=== PATIENT | female | born 1955 | race Two or more races ===

== ENCOUNTER 2016-11-21 13:05 | Outpatient (CLI) | payer BC | END 2016-11-21 13:06 | disposition critical access hospital (66) | LOC: EMS 13:05 | PROVIDERS: ATTEND Surgery | DX: R07.89 Other chest pain (principal); R55 Syncope and collapse | CPT/HCPCS: A0425; A0429 ==

== ENCOUNTER 2016-11-21 13:42 | Emergency (ER) | payer BC ==
[2016-11-21 14:15] LABS: BASOPHILS % (AUTO) 0.5 %; EOSINOPHILS # (AUTO) 0.1 10^3/uL (0.0-0.7); EOSINOPHILS % (AUTO) 1.4 %; HCT - HEMATOCRIT 42.7 % (37.0-47.0); HGB - HEMOGLOBIN 14.3 g/dL (12.0-16.0); LYMPHOCYTES # (AUTO) 1.3 10^3/uL (1.5-3.5); LYMPHOCYTES % (AUTO) 15.1 %; MEAN CORPUSCULAR HEMOGLOBIN 29.1 pg (27.0-31.0); MEAN CORPUSCULAR HGB CONC 33.6 g/dL (32.0-36.0); MEAN CORPUSCULAR VOLUME 86.6 fL (81.0-99.0); MEAN PLATELET VOLUME 8.8 fL (7.9-10.8); MONOCYTES # (AUTO) 0.6 10^3/uL (0.0-1.0); MONOCYTES % (AUTO) 7.2 %; NEUTROPHILS # (AUTO) 6.3 10^3/uL (1.5-6.6); NEUTROPHILS % (AUTO) 75.8 %; RED BLOOD COUNT 4.94 10^6/uL (4.20-5.40); RED CELL DISTRIBUTION WIDTH 13.5 % (12.0-15.0); UNCORRECTED WHITE BLOOD COUNT 8.3 x10^3/uL; WHITE BLOOD COUNT 8.3 x10^3/uL (4.8-10.8)
--- NOTE | 2016-11-21 14:18 | XRAY Preliminary Report ---
Exam: XR Chest 1 View IMPRESSION: No acute cardiopulmonary process. [facility] SITE ID: [id number]
--- NOTE | 2016-11-21 14:21 | XRAY Report ---
EXAM: CHEST RADIOGRAPHY EXAM DATE: 11/21/2016 02:09 PM. CLINICAL HISTORY: Chest pain. COMPARISON: None. TECHNIQUE: 1 view. FINDINGS: Heart size appears normal. No pulmonary consolidation or edema. IMPRESSION: No acute cardiopulmonary process. [facility] Referring Provider Line: [phone] SITE ID: [id number]
[2016-11-21 14:30] LABS: ALBUMIN/GLOBULIN RATIO 1.5 (1.0-2.2); BILIRUBIN,TOTAL 1.1 mg/dL (0.2-1.0); CALCIUM 9.3 mg/dL (8.5-10.3); CREATININE 0.6 mg/dL (0.4-1.0); POTASSIUM 3.9 mmol/L (3.5-5.0); TOTAL PROTEIN 7.6 g/dL (6.7-8.2)
--- NOTE | 2016-11-21 14:31 | ED Physician Documentation ---
PD HPI CHEST PAIN - Stated complaint Stated Complaint: CP, DIZZY, NEAR SYNCOPE - Chief complaint Chief Complaint: Cardiac - History obtained from History obtained from: Patient, EMS - History of Present Illness Timing - onset: How many hours ago (3) Timing - onset during: Light activity Timing - duration: Hours (3) Timing - details: Now resolved Quality: Indigestion ("burning") Location: Substernal Radiation: Right upper extremity Worsened by: Other (swallowing) Associated symptoms: Feeling faint / dizzy Similar symptoms before: Diagnosis (Similar symtoms previously with gastroesophageal reflux.) - Additional information Additional information: The patient is a pleasant 61-year-old female who presents after an episode of substernal chest pain radiating to her right upper arm. The incident occurred about 3 hours prior to arrival while she was playing with children outdoors. She describes it as a burning sensation that was worse with swallowing. She found herself burping, and became diaphoretic, and felt dizzy. She denies associated vomiting or shortness of breath. Her symptoms have subsequently resolved, and it is not clear how long the duration of symptoms was. Cardiac risk factors are positive for hyperlipidemia and family history of early IA, in both her father and her brother; negative for hypertension, diabetes, or cigarette smoking. Past medical history is significant for gastroesophageal reflux, which produced similar symptoms in the past, but not this severe. Her reflux improved while taking omeprazole, but that medication was stopped 3 weeks ago, with subsequent increase in reflux symptoms. Review of Systems Constitutional: denies: Fever, Fatigue Ears: denies: Tinnitus/ringing Nose: denies: Congestion Throat: denies: Sore throat Cardiac: reports: Chest pain / pressure (Previously, but not currently.). denies: Palpitations Respiratory: denies: Dyspnea, Cough GI: denies: Abdominal Pain, Nausea, Vomiting : denies: Dysuria Skin: denies: Rash Musculoskeletal: denies: Back pain, Extremity swelling Neurologic: denies: Focal weakness, Numbness, Headache PD PAST MEDICAL HISTORY - Past Medical History Past Medical History: Yes Cardiovascular: High cholesterol Respiratory: None Neuro: None Endocrine/Autoimmune: None GI: GERD - Present Medications Home Medications: Ambulatory Orders Medication Instructions Recorded Confirmed Omeprazole [PriLOSEC] 20 mg PO DAILY #14 capsule 11/21/16 - Allergies Allergies/Adverse Reactions: Allergies Allergy/AdvReac Type Severity Reaction Status Date / Time aspirin Allergy Unknown Verified 11/21/16 13:50 morphine Allergy Unknown Verified 11/21/16 13:50 - Social History Does the pt smoke?: No Smoking Status: Never smoker - Immunizations Immunizations are current?: Yes PD ED PE NORMAL - Vitals Vital signs reviewed: Yes (normal) - General General: Alert and oriented X 3, Well developed/nourished - HEENT HEENT: Atraumatic, Pharynx benign - Neck Neck: No adenopathy, No JVD - Cardiac Cardiac: RRR, No murmur - Respiratory Respiratory: No respiratory distress, Clear bilaterally - Abdomen Abdomen: Normal bowel sounds, Soft, Non tender, No organomegaly - Back Back: No CVA TTP - Derm Derm: No rash - Extremities Extremities: No edema, No calf tenderness / cord - Neuro Neuro: Alert and oriented X 3, No motor deficit, No sensory deficit Results - Vitals Vitals: Vital Signs - 24 hr 11/21/16 11/21/16 11/21/16 13:46 15:32 16:12 Temperature 36.3 C L 36.6 C Heart Rate 89 77 70 Respiratory 18 16 16 Rate Blood Pressure 139/79 H 118/69 121/69 O2 Saturation 97 98 98 Oxygen O2 Source Room air - EKG (time done) 13:51 Rate: Rate (enter#) (81) Rhythm: NSR Atlas: Normal Intervals: Normal DE QRS: Normal Ischemia: Normal ST segments Computer interpretation: Agree with computer - Labs Labs: Laboratory Tests 11/21/16 11/21/16 11/21/16 14:07 14:07 14:07 WBC 8.3 RBC 4.94 Hgb 14.3 Hct 42.7 MCV 86.6 MCH 29.1 MCHC 33.6 RDW 13.5 Plt Count 192 MPV 8.8 Neut # 6.3 Lymph # 1.3 L [place] # 0.6 Eos # 0.1 Baso # 0.0 Absolute Nucleated RBC 0.00 Nucleated RBCs 0.0 Sodium 138 Potassium 3.9 Chloride 100 L Carbon Dioxide 28 Anion Gap 10.0 BUN 14 Creatinine 0.6 Estimated GFR (MDRD) 101 Glucose 110 H Calcium 9.3 Total Bilirubin 1.1 H AST 34 ALT 34 Alkaline Phosphatase 80 Troponin I < 0.04 Total Protein 7.6 Albumin 4.5 Globulin 3.1 Albumin/Globulin Ratio 1.5 Lipase 29 - Rads (name of study) CXR Radiology: Prelim report reviewed, EMP read contemporaneously, See rad report ( No acute cardiopulmonary process.) PD MEDICAL DECISION MAKING - ED course Complexity details: reviewed results, re-evaluated patient, considered differential, d/w patient, d/w family ED course: The patient's presentation, with transient substernal chest pain, is most likely due to gastroesophageal reflux. Cardiac etiology was considered, but is less likely. Her electrocardiogram reveals no ischemic abnormalities, and troponin level is normal. CBC and chemistry panel are unremarkable. Chest x- ray reveals no radiographic abnormality. She remained asymptomatic while in the emergency department. Given her past history of gastroesophageal reflux, it was felt clinically advisable to resuming treatment with omeprazole. She is being discharged with a prescription for omeprazole. I discussed with her and her the results of her workup, the importance of outpatient follow-up, as well as potentially worrisome signs or symptoms that should prompt reevaluation in the emergency department. Departure - Departure Disposition: 01 Home, Self Care Clinical Impression: Chest pain Gastroesophageal reflux disease Qualifiers: Esophagitis presence: esophagitis presence not specified Qualified Code(s): K21.9 - Gastro-esophageal reflux disease without esophagitis Condition: Stable Instructions: ED GERD Follow-Up: Dhaval Simon ARNP [Physician No Access] - Prescriptions: Omeprazole [PriLOSEC] 20 mg PO DAILY #14 capsule Comments: Resume omeprazole as prescribed. Follow up with your primary physician next week as scheduled. Return to the emergency department if you develop recurrent or increasing chest pain, shortness of breath, vomiting, or otherwise worsening symptoms. Discharge Date/Time: 11/21/16 16:12
[2016-11-21 16:13] VITALS: BP 121/69
== END 2016-11-21 16:12 | disposition home or self-care (01) ==
LOC: ED 13:42
DX: K21.9 Gastro-esophageal reflux disease without esophagitis (principal); R07.89 Other chest pain; E78.5 Hyperlipidemia, unspecified; Z82.49 Family history of ischemic heart disease and other diseases of the circulatory system
CPT/HCPCS: 36415; 71010; 80053; 83690; 84484; 85025; 93005; 99284; 99285

== ENCOUNTER 2017-06-28 14:18 | Emergency (ER) | payer BC, OTHER ==
[2017-06-28 17:18] VITALS: BP 117/75
--- NOTE | 2017-06-28 18:01 | ED Physician Documentation ---
History of Present Illness - Stated complaint Stated Complaint: ELEV BP,SERGIO EYE SWELLING - Chief complaint Chief Complaint: General - Additonal information Additional information: pt has a BP cuff at home and usually her SBP is about 112 but today it was 150 and she had some palpitations no GONSALEZ no CP her eyes were puffy too but she thinks that was allergies and that is better now she has been under stress recently no OTC meds to cause inc BP just ech[place] Review of Systems Constitutional: denies: Fever Throat: denies: Sore throat Cardiac: reports: Palpitations. denies: Chest pain / pressure Respiratory: denies: Dyspnea GI: denies: Abdominal Pain, Nausea, Vomiting Immunocompromised: denies: Immunocompromised PD PAST MEDICAL HISTORY - Past Medical History Past Medical History: Yes Cardiovascular: High cholesterol Respiratory: None Neuro: None Endocrine/Autoimmune: None GI: GERD - Past Surgical History Past Surgical History: No - Present Medications Home Medications: Ambulatory Orders Medication Instructions Recorded Confirmed Atorvastatin Calcium 40 mg PO DAILY 06/28/17 06/28/17 Cholecalciferol (Vitamin D3) 1 tab PO DAILY 06/28/17 06/28/17 [Vitamin D3] Magnesium Oxide [Magnesium] 500 mg PO BID 06/28/17 06/28/17 - Allergies Allergies/Adverse Reactions: Allergies Allergy/AdvReac Type Severity Reaction Status Date / Time aspirin Allergy Unknown Verified 06/28/17 16:52 morphine Allergy Unknown Verified 06/28/17 16:52 tramadol AdvReac Unknown Verified 06/28/17 16:53 - Social History Does the pt smoke?: No Smoking Status: Never smoker Does the pt drink ETOH?: Yes Does the pt have substance abuse?: No - Immunizations Immunizations are current?: Yes PD ED PE NORMAL - Vitals Vital signs reviewed: Yes - HEENT HEENT: Atraumatic, PERRL, EOMI, Other (no proptosis) - Neck Neck: Supple, no meningeal sign - Cardiac Cardiac: RRR, No murmur - Respiratory Respiratory: No respiratory distress, Clear bilaterally - Abdomen Abdomen: Soft, Non tender - Derm Derm: Normal color - Neuro Neuro: Alert and oriented X 3 Results - Vitals Vitals: Vital Signs - 24 hr 06/28/17 06/28/17 14:27 17:17 Temperature 36 C L 36.6 C Heart Rate 101 H 79 Respiratory 18 16 Rate Blood Pressure 164/96 H 117/75 O2 Saturation 96 99 Oxygen O2 Source Room air - EKG (time done) 1715 Rate: Rate (enter#) (75) Rhythm: NSR [place]: Normal Intervals: Normal NM Ischemia: Normal ST segments Departure - Departure Disposition: 01 Home, Self Care Clinical Impression: High blood pressure Qualifiers: Hypertension type: essential hypertension Qualified Code(s): I10 - Essential ( primary) hypertension Condition: Good Instructions: ED Hypertension Poss Comments: Your EKG is fine - normal rhythm and no signs of heart attack. And you blood pressure has come back done - so I do not think you need to start medications. Please continue to monitor your blood pressure at home and keep a log to review with your PMD. Return if worse (chest pain, irregular heart beat, headache, weakness numbness)
== END 2017-06-28 18:17 | disposition home or self-care (01) ==
LOC: ED 14:18
DX: I10 Essential (primary) hypertension (principal); E78.5 Hyperlipidemia, unspecified
CPT/HCPCS: 93005; 99283

== ENCOUNTER 2017-08-10 08:55 | Outpatient (CLI) | payer OTHER ==
[2017-08-10 10:36] LABS: BASOPHILS # (AUTO) 0.1 10^3/uL (0.0-0.1); BASOPHILS % (AUTO) 0.6 %; EOSINOPHILS # (AUTO) 0.2 10^3/uL (0.0-0.7); EOSINOPHILS % (AUTO) 1.8 %; LYMPHOCYTES # (AUTO) 1.8 10^3/uL (1.5-3.5); LYMPHOCYTES % (AUTO) 17.9 %; MEAN CORPUSCULAR HEMOGLOBIN 29.5 pg (27.0-31.0); MEAN CORPUSCULAR HGB CONC 33.9 g/dL (32.0-36.0); MEAN PLATELET VOLUME 9.7 fL (7.9-10.8); MONOCYTES # (AUTO) 0.9 10^3/uL (0.0-1.0); MONOCYTES % (AUTO) 8.4 %; NEUTROPHILS # (AUTO) 7.3 10^3/uL (1.5-6.6); NEUTROPHILS % (AUTO) 71.3 %; PLT - PLATELET COUNT 183 10^3/uL (130-450); RED BLOOD COUNT 4.77 10^6/uL (4.20-5.40); RED CELL DISTRIBUTION WIDTH 13.4 % (12.0-15.0); WHITE BLOOD COUNT 10.3 x10^3/uL (4.8-10.8)
[2017-08-10 11:08] LABS: ALBUMIN 4.4 g/dL (3.2-5.5); ALBUMIN/GLOBULIN RATIO 1.5 (1.0-2.2); ALKALINE PHOSPHATASE 60 IU/L (42-121); ALT ALANINE AMINOTRANSFERASE 20 IU/L (10-60); AST ASPARTATE AMINOTRANSFERASE 24 IU/L (10-42); BILIRUBIN,TOTAL 1.4 mg/dL (0.2-1.0); BUN - BLOOD UREA NITROGEN 19 mg/dL (6-20); CALCIUM 9.1 mg/dL (8.5-10.3); CARBON DIOXIDE - CO2 23 mmol/L (21-32); CHLORIDE 104 mmol/L (101-111); CHOL/HDL RATIO 3.2 (<4.4); CHOLESTEROL 145 mg/dL; CREATININE 0.7 mg/dL (0.4-1.0); GFR - MDRD 85 (>89); GLUCOSE 94 mg/dL (70-100); HDL CHOLESTEROL 45 mg/dL; LDL CHOLESTEROL,CALCULATED 82 mg/dL; LDL/HDL RATIO 1.8 (<4.4); SODIUM 136 mmol/L (135-145); TOTAL PROTEIN 7.3 g/dL (6.7-8.2); VLDL CHOLESTEROL 18 mg/dL
== END 2017-08-10 08:56 | disposition home or self-care (01) ==
LOC: LAB.F 08:55
PROVIDERS: ATTEND Family Medicine
DX: E78.5 Hyperlipidemia, unspecified (principal)
CPT/HCPCS: 36415; 80053; 80061; 83721; 84443; 85025

== ENCOUNTER 2017-10-19 06:50 | Day surgery (SDC) | payer OTHER ==
[2017-10-19] MEDS ORDERED: LACTATED RINGERS 1,000 ML IV ONE ×2 (06:53→08:51)
[2017-10-19] MEDS ORDERED: MIDAZOLAM 2 MG/2 ML VIAL IVP ONE (08:07)
[2017-10-19] MEDS ORDERED: fentaNYL 250 MCG/5 ML VIAL IVP ONE (08:07)
[2017-10-19 09:16] VITALS: BP 98/60
== END 2017-10-19 06:51 | disposition home or self-care (01) ==
LOC: SDS 06:50
PROVIDERS: ATTEND Surgery
PROC: 0DJD8ZZ Inspection of Lower Intestinal Tract, Via Natural or Artificial Opening Endoscopic (ICD-10-PCS; principal; 2017-10-19 08:20)
DX: Z12.11 Encounter for screening for malignant neoplasm of colon (principal); K64.8 Other hemorrhoids; E78.5 Hyperlipidemia, unspecified; Z87.891 Personal history of nicotine dependence
CPT/HCPCS: 45378; J7120

== ENCOUNTER 2018-03-11 07:46 | Outpatient (CLI) | payer OTHER | END 2018-03-11 07:47 | disposition home or self-care (01) | LOC: DI 07:46 | PROVIDERS: ATTEND Physician Assistant Medical | DX: Z12.31 Encounter for screening mammogram for malignant neoplasm of breast (principal) ==

== ENCOUNTER 2018-03-11 07:50 | Outpatient (CLI) | payer OTHER ==
--- NOTE | 2018-03-11 11:32 | DEXA Report ---
Reason: POSTMENAPAUSAL Procedure Date: 03/11/2018 Accession Number: [id number] / [id number] Procedure: DEX - Dexa Spine and/or Hip CPT Code: FULL RESULT: EXAM: Dexa Spine and/or Hip DATE: 03/11/2018 8:45 AM CLINICAL HISTORY: POSTMENAPAUSAL TECHNIQUE: Dual energy x-ray absorptiometry (DXA) was performed on a ticketscript System. Regions measured are the AP Spine, femoral neck, and if needed forearm. COMPARISON: None. In accordance with the International Society for Clinical Densitometry (ISCD) guidelines, data from previous exams may be reanalyzed using current recommendations and techniques. This is done to allow a more accurate basis for comparison with the current study. FINDINGS: The data for the lumbar spine is as follows: BMD (g/cm/cm) T-SCORE Z-SCORE REGION L1 0.988 -1.2 L2 1.140 -0.5 L3 1.330 1.1 L4 1.227 0.2 TOTAL 1.183 0.0 NOTE: All evaluable vertebrae are used for classification The data for the hip is as follows: BMD (g/cm/cm) T-SCORE Z-SCORE REGION Neck 1.053 0.1 TOTAL 1.108 0.8 NOTE: The femoral neck or total proximal femur, whichever is lowest, is used for classification. IMPRESSION: THE WHO CLASSIFICATION BASED ON THE INTERNATIONAL REFERENCE STANDARD IS NORMAL. THE FRACTURE RISK IS NOT INCREASED. RECOMMENDATION: Patients with diagnosis of osteoporosis or osteopenia should have regular bone mineral density assessment. For those eligible for Medicare, routine testing is allowed once every 2 years. Testing frequency can be increased for patients who have rapidly progressing disease or for those who are receiving medical therapy to restore bone mass. COMMENT: World Health Organization (WHO) definitions for osteoporosis and osteopenia: NORMAL BMD: T-score at -1.0 or higher, fracture risk is low OSTEOPENIA BMD: T-score between -1.0 and -2.5, fracture risk is increased. OSTEOPOROSIS BMD: T-score at -2.5 or lower, fracture risk is high. National Osteoporosis Foundation recommends: 1. Obtain adequate dietary calcium (at least 1200 mg per day) and vitamin D (400-800 international units per day). 2. Participate, as appropriate, in regular weightbearing and muscle-strengthening exercise. 3. Avoid tobacco use and reduce alcohol and caffeine intake. 4. For more detailed information see the website at www.NOF.org.
== END 2018-03-11 07:51 | disposition home or self-care (01) ==
LOC: DI 07:50
PROVIDERS: ATTEND Physician Assistant Medical
DX: Z78.0 Asymptomatic menopausal state (principal); Z12.31 Encounter for screening mammogram for malignant neoplasm of breast
CPT/HCPCS: 77063; 77067; 77080

== ENCOUNTER 2018-04-19 07:44 | Outpatient (CLI) | payer OTHER | END 2018-04-19 07:45 | disposition home or self-care (01) | LOC: LAB.F 07:44 | PROVIDERS: ATTEND Physician Assistant Medical | DX: R22.0 Localized swelling, mass and lump, head (principal); L50.0 Allergic urticaria; R14.0 Abdominal distension (gaseous) | CPT/HCPCS: 36415; 81599 ==

== ENCOUNTER 2018-04-25 07:18 | Emergency (ER) | payer OTHER ==
[2018-04-25 07:36] VITALS: BP 173/90
[2018-04-25] MEDS ORDERED: DEXAMETHASONE 10 MG/ML VIAL PO STA (08:08)
--- NOTE | 2018-04-25 08:14 | ED Physician Documentation ---
History of Present Illness - Stated complaint Stated Complaint: SWOLLEN FACE - Chief complaint Chief Complaint: General - Additonal information Additional information: hx from pt 62 female to ED with facial swelling she has had this several times before has seen PMD for same txed with benadryl zantac steroids only other med is atorvastatin which she dced 2 days ago specifically she is not on BP meds / JORDI inhibitor no new food lotion soap detergent etc no new exposure to animals has a referral to an ellergist for testing this Am again with swelling to lower face and lip no tongue swelling no SOA itchy but no hives Review of Systems Constitutional: denies: Fever, Chills Throat: denies: Sore throat Respiratory: denies: Dyspnea Skin: denies: Rash PD PAST MEDICAL HISTORY - Past Medical History Cardiovascular: Hypertension Respiratory: None Endocrine/Autoimmune: None GI: Colon polyps : None HEENT: Chronic vision loss Psych: None Musculoskeletal: None Derm: None - Past Surgical History Past Surgical History: No General: Colonoscopy Ortho: Carpal Tunnel surgery - Present Medications Home Medications: Ambulatory Orders Medication Instructions Recorded Confirmed Cholecalciferol (Vitamin D3) 1 tab PO DAILY 06/28/17 10/19/17 [Vitamin D3] predniSONE [Deltasone] 60 mg PO DAILY #6 tablet 04/25/18 raNITIdine [Zantac] 150 mg PO DAILY 04/25/18 04/25/18 - Allergies Allergies/Adverse Reactions: Allergies Allergy/AdvReac Type Severity Reaction Status Date / Time aspirin Allergy Unknown Verified 04/25/18 07:26 morphine Allergy Unknown Verified 04/25/18 07:26 tramadol AdvReac Unknown Verified 04/25/18 07:26 - Social History Does the pt smoke?: No Smoking Status: Never smoker Does the pt drink ETOH?: Yes Does the pt have substance abuse?: No - Immunizations Immunizations are current?: Yes PD ED PE NORMAL - Vitals Vital signs reviewed: Yes - General General: Alert and oriented X 3 - HEENT HEENT: Other (slight swelling to lower cheeks, no sig lip swelling, no tongue swelling, no uvula swelling) - Cardiac Cardiac: RRR - Respiratory Respiratory: No respiratory distress, Other (no stridor or wheeze) - Derm Derm: Other (no hives) - Neuro Neuro: Alert and oriented X 3 Results - Vitals Vitals: Vital Signs - 24 hr 04/25/18 07:22 Temperature 37.2 C Heart Rate 102 H Respiratory 18 Rate Blood Pressure 173/90 H O2 Saturation 99 Oxygen O2 Source Room air PD MEDICAL DECISION MAKING - ED course ED course: allergic rxn unclear etiology not req epi has allergy testing pending confirmed no JORDI i will add steroids to benadryl zantac Departure - Departure Disposition: 01 Home, Self Care Clinical Impression: Allergic reaction Qualifiers: Encounter type: initial encounter Qualified Code(s): T78.40XA - Allergy, unspecified, initial encounter Condition: Good Instructions: ED Angioedema Prescriptions: predniSONE [Deltasone] 60 mg PO DAILY #6 tablet Comments: Take benadryl 25 mg every 6 hr for the next three days next dose about noon Take zantac 150 mg twice a day for the next three days - next dose tonight Take prednisone once a day for the next thee days - next dose tomorrow morning 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
== END 2018-04-25 08:32 | disposition home or self-care (01) ==
LOC: ED 07:18
DX: T78.40XA Allergy, unspecified, initial encounter (principal); R22.9 Localized swelling, mass and lump, unspecified; I10 Essential (primary) hypertension
CPT/HCPCS: 99283

== ENCOUNTER 2018-07-08 09:51 | Outpatient (CLI) | payer OTHER ==
[2018-07-08 17:42] LABS: BASOPHILS # (AUTO) 0.1 10^3/uL (0.0-0.1); BASOPHILS % (AUTO) 0.9 %; EOSINOPHILS # (AUTO) 0.1 10^3/uL (0.0-0.7); EOSINOPHILS % (AUTO) 1.9 %; HGB - HEMOGLOBIN 13.6 g/dL (12.0-16.0); LYMPHOCYTES # (AUTO) 1.2 10^3/uL (1.5-3.5); LYMPHOCYTES % (AUTO) 19.8 %; MEAN CORPUSCULAR HGB CONC 32.4 g/dL (32.0-36.0); MEAN CORPUSCULAR VOLUME 89.4 fL (81.0-99.0); MEAN PLATELET VOLUME 10.4 fL (7.9-10.8); MONOCYTES # (AUTO) 0.5 10^3/uL (0.0-1.0); MONOCYTES % (AUTO) 7.4 %; NEUTROPHILS # (AUTO) 4.3 10^3/uL (1.5-6.6); PLT - PLATELET COUNT 178 10^3/uL (130-450); RED BLOOD COUNT 4.71 10^6/uL (4.20-5.40); RED CELL DISTRIBUTION WIDTH 14.4 % (12.0-15.0); WHITE BLOOD COUNT 6.2 x10^3/uL (4.8-10.8)
[2018-07-08 17:52] LABS: ALBUMIN 4.2 g/dL (3.2-5.5); ALBUMIN/GLOBULIN RATIO 1.4 (1.0-2.2); ALKALINE PHOSPHATASE 73 IU/L (42-121); ALT ALANINE AMINOTRANSFERASE 23 IU/L (10-60); AST ASPARTATE AMINOTRANSFERASE 24 IU/L (10-42); BILIRUBIN,TOTAL 1.3 mg/dL (0.2-1.0); BUN - BLOOD UREA NITROGEN 14 mg/dL (6-20); CALCIUM 9.4 mg/dL (8.5-10.3); CARBON DIOXIDE - CO2 24 mmol/L (21-32); CHLORIDE 104 mmol/L (101-111); CHOL/HDL RATIO 3.4 (<4.4); CHOLESTEROL 134 mg/dL; CREATININE 0.6 mg/dL (0.4-1.0); GFR - MDRD 101 (>89); GLUCOSE 95 mg/dL (70-100); HDL CHOLESTEROL 40 mg/dL; LDL CHOLESTEROL,CALCULATED 71 mg/dL; LDL/HDL RATIO 1.8 (<4.4); SODIUM 138 mmol/L (135-145); TOTAL PROTEIN 7.1 g/dL (6.7-8.2); VLDL CHOLESTEROL 23 mg/dL
[2018-07-08 18:02] LABS: HB2 TOTAL 14.6 g/dL; HEMOGLOBIN A1C 0.5 g/dL; HEMOGLOBIN A1C % 5.3 % (4.6-6.2)
== END 2018-07-08 09:52 | disposition home or self-care (01) ==
LOC: LAB.F 09:51
PROVIDERS: ATTEND Registered Nurse
DX: Z00.00 Encounter for general adult medical examination without abnormal findings (principal)
CPT/HCPCS: 36415; 80053; 80061; 83036; 83721; 84443; 85025

== ENCOUNTER 2019-04-15 10:16 | Outpatient (CLI) | payer MEDICAID ==
--- NOTE | 2019-04-15 14:12 | Mammography Report ---
Reason: SCREENING MAMMO Procedure Date: 04/15/2019 Accession Number: [id number] / [id number] Procedure: MGS - Screening Mammo Dig Bilat CPT Code: Final Report FULL RESULT: EXAM: Screening Mammo Dig Bilat DATE: 04/15/2019 10:48 AM CLINICAL HISTORY: Routine screening. No reported personal or family history of breast cancer. TECHNIQUE: (B) - Bilateral CC and MLO views were obtained. COMPARISON: 03/11/2018 through 05/17/2015. PARENCHYMAL PATTERN: (A) - The breasts demonstrate scattered fibroglandular densities bilaterally. FINDINGS: Bilateral breasts: There are no suspicious masses, calcifications, or areas of distortion. IMPRESSION: Negative examination. BI-RADS category 1. RECOMMENDATION: (ANNUAL) - Recommend routine annual screening mammography. BI-RADS CATEGORY: (1) - Negative. STANDARD QUALIFYING STATEMENTS: 1. This examination was not reviewed with the aid of Computer-Aided Detection (CAD). 2. A negative or benign imaging report should not preclude biopsy if clinically suspicious findings are present. 3. Dense breasts may obscure an underlying neoplasm. 4. This examination was reviewed without the aid of 3D breast imaging (tomosynthesis).
== END 2019-04-15 10:17 | disposition home or self-care (01) ==
LOC: DI.S 10:16
PROVIDERS: ATTEND Registered Nurse
DX: Z12.31 Encounter for screening mammogram for malignant neoplasm of breast (principal)
CPT/HCPCS: 77067

== ENCOUNTER 2019-04-15 10:19 | Outpatient (CLI) | payer MEDICAID ==
--- NOTE | 2019-04-16 09:24 | XRAY Report ---
Reason: KNEE JOINT PAIN, LEFT Procedure Date: 04/15/2019 Accession Number: [id number] / [id number] Procedure: XRS - Knee 3 View LT CPT Code: Final Report FULL RESULT: EXAM: LEFT KNEE RADIOGRAPHY EXAM DATE: 04/15/2019 10:36 AM. CLINICAL HISTORY: KNEE JOINT PAIN, LEFT. COMPARISON: None. TECHNIQUE: 3 views. FINDINGS: Bones: No fracture seen. Joints: No dislocation. Very mild degenerative joint disease in the medial compartment. No joint effusion seen. Soft Tissues: Grossly unremarkable. IMPRESSION: 1. Very mild degenerative joint disease in the medial compartment. [facility]
== END 2019-04-15 10:20 | disposition home or self-care (01) ==
LOC: DI.S 10:19
PROVIDERS: ATTEND Registered Nurse
DX: M17.12 Unilateral primary osteoarthritis, left knee (principal)

== ENCOUNTER 2019-04-22 09:36 | Outpatient (CLI) | payer MEDICAID ==
[2019-04-22 18:40] LABS: BASOPHILS # (AUTO) 0.1 10^3/uL (0.0-0.1); BASOPHILS % (AUTO) 0.9 %; EOSINOPHILS # (AUTO) 0.3 10^3/uL (0.0-0.7); HGB - HEMOGLOBIN 13.7 g/dL (12.0-16.0); LYMPHOCYTES # (AUTO) 1.6 10^3/uL (1.5-3.5); LYMPHOCYTES % (AUTO) 17.7 %; MEAN CORPUSCULAR HEMOGLOBIN 28.4 pg (27.0-31.0); MEAN CORPUSCULAR HGB CONC 30.9 g/dL (32.0-36.0); MEAN CORPUSCULAR VOLUME 91.9 fL (81.0-99.0); MEAN PLATELET VOLUME 12.1 fL (7.9-10.8); MONOCYTES # (AUTO) 0.7 10^3/uL (0.0-1.0); MONOCYTES % (AUTO) 7.7 %; NEUTROPHILS # (AUTO) 6.4 10^3/uL (1.5-6.6); NEUTROPHILS % (AUTO) 70.3 %; PLT - PLATELET COUNT 197 10^3/uL (130-450); RED BLOOD COUNT 4.83 10^6/uL (4.20-5.40); WHITE BLOOD COUNT 9.1 x10^3/uL (4.8-10.8)
[2019-04-22 18:49] LABS: ALBUMIN 4.5 g/dL (3.2-5.5); ALBUMIN/GLOBULIN RATIO 1.7 (1.0-2.2); ALKALINE PHOSPHATASE 68 IU/L (42-121); ALT ALANINE AMINOTRANSFERASE 20 IU/L (10-60); AST ASPARTATE AMINOTRANSFERASE 24 IU/L (10-42); BILIRUBIN,TOTAL 1.2 mg/dL (0.2-1.0); BUN - BLOOD UREA NITROGEN 14 mg/dL (6-20); CALCIUM 9.1 mg/dL (8.5-10.3); CARBON DIOXIDE - CO2 25 mmol/L (21-32); CHLORIDE 105 mmol/L (101-111); CHOL/HDL RATIO 3.1 (<4.4); CHOLESTEROL 143 mg/dL; CREATININE 0.7 mg/dL (0.4-1.0); GFR - MDRD 84 (>89); GLUCOSE 98 mg/dL (70-100); HDL CHOLESTEROL 46 mg/dL; LDL CHOLESTEROL,CALCULATED 76 mg/dL; LDL/HDL RATIO 1.7 (<4.4); SODIUM 139 mmol/L (135-145); TOTAL PROTEIN 7.2 g/dL (6.7-8.2); VLDL CHOLESTEROL 21 mg/dL
[2019-04-22 19:23] LABS: HB2 TOTAL 13.8 g/dL; HEMOGLOBIN A1C 0.55 g/dL; HEMOGLOBIN A1C % 5.8 % (4.6-6.2)
== END 2019-04-22 09:37 | disposition home or self-care (01) ==
LOC: LAB.S 09:36
PROVIDERS: ATTEND Registered Nurse
DX: E78.5 Hyperlipidemia, unspecified (principal); R53.83 Other fatigue; Z13.1 Encounter for screening for diabetes mellitus
CPT/HCPCS: 36415; 80053; 80061; 83036; 83721; 84443; 85025

== ENCOUNTER 2019-05-09 17:41 | Emergency (ER) | payer MEDICAID ==
[2019-05-09] MEDS ORDERED: TETANUS/DIPHTHERIA/PERTUSSIS 0.5 ML SYRINGE IM ONE (18:16)
[2019-05-09] MEDS ORDERED: BUFFERED LIDOCAINE 10 ML SYRINGE SUBQ STA (18:16)
--- NOTE | 2019-05-09 18:59 | ED Physician Documentation ---
PD HPI UPPER EXT INJURY - Stated complaint Stated Complaint: RT THUMB LAC - Chief complaint Chief Complaint: Laceration - History obtained from History obtained from: Patient (This is a right-handed woman who is up-to-date on tetanus who cut her right thumb on a can lid at home just prior to arrival.) Review of Systems Constitutional: reports: Reviewed and negative Throat: reports: Reviewed and negative Cardiac: reports: Reviewed and negative PD PAST MEDICAL HISTORY - Past Medical History Cardiovascular: Hypertension Respiratory: None Endocrine/Autoimmune: None GI: Colon polyps : None HEENT: Chronic vision loss Psych: None Musculoskeletal: None Derm: None - Past Surgical History Past Surgical History: No General: Colonoscopy Ortho: Carpal Tunnel surgery - Present Medications Home Medications: Ambulatory Orders Medication Instructions Recorded Confirmed Cholecalciferol (Vitamin D3) 1 tab PO DAILY 06/28/17 10/19/17 [Vitamin D3] predniSONE [Deltasone] 60 mg PO DAILY #6 tablet 04/25/18 raNITIdine [Zantac] 150 mg PO DAILY 04/25/18 04/25/18 - Allergies Allergies/Adverse Reactions: Allergies Allergy/AdvReac Type Severity Reaction Status Date / Time aspirin Allergy Unknown Verified 04/25/18 07:26 morphine Allergy Unknown Verified 04/25/18 07:26 tramadol AdvReac Unknown Verified 04/25/18 07:26 - Social History Does the pt smoke?: No Smoking Status: Never smoker Does the pt drink ETOH?: Yes Does the pt have substance abuse?: No - Immunizations Immunizations are current?: Yes PD ED PE NORMAL - Vitals Vital signs reviewed: Yes - General General: Alert and oriented X 3, No acute distress - HEENT HEENT: PERRL, EOMI - Neck Neck: Supple, no meningeal sign, No bony TTP - Extremities Extremities: Other (There is a shallow laceration into subcutaneous fat on the palmar surface of the right thumb just proximal to the PIP with normal flexor tendon strength and no evidence of distal neurovascular compromise, specifically she has normal cap refill and sensation at both sides of the tip.) - Neuro Neuro: Alert and oriented X 3, Normal speech Results - Vitals Vitals: Vital Signs - 24 hr 05/09/19 17:55 Temperature 36.1 C L Heart Rate 88 Respiratory 18 Rate Blood Pressure 151/90 H O2 Saturation 96 Oxygen O2 Source Room air Procedures - Laceration (location) R thumb Length in cm: 1.5 Wound type: Linear, Into subcut fat Neurovascular status: Sensory intact, Motor intact, Vascular intact Anesthesia: Lidocaine 1%, With bicarb Wound Preparation: Irrigated copiously NS Skin layer closure: Nylon, Interrupted, Size #-0 - enter number (5-0), Sutures - enter # (4) Other: Patient tolerated well, Tetanus UTD Complexity: Simple Departure - Departure Disposition: 01 Home, Self Care Clinical Impression: Thumb laceration Qualifiers: Encounter type: initial encounter Damage to nail status: without damage Foreign body presence: without foreign body Laterality: right Qualified Code(s): S61.011A - Laceration without foreign body of right thumb without damage to nail, initial encounter Condition: Good Record reviewed to determine appropriate education?: Yes Instructions: ED Laceration Hand Comments: Come back for any signs of infection which would include: Redness, swelling, drainage, increased pain, or fevers. You can wash it soap and water. Keep it covered and moist with bacitracin ointment which is available over the counter; avoid neosporin. Follow-up with your physician in 14 days for suture removal. Your blood pressure was elevated today on check into the emergency department. This does not mean that you have hypertension, it is a common phenomenon to come to the emergency department and have elevated blood pressure. I recommend that you see your primary care physician within the week to have it rechecked when you are feeling better.
[2019-05-09 19:25] VITALS: BP 150/82
== END 2019-05-09 19:25 | disposition home or self-care (01) ==
LOC: ED 17:41
DX: S61.011A Laceration without foreign body of right thumb without damage to nail, initial encounter (principal); W26.8XXA Contact with other sharp object(s), not elsewhere classified, initial encounter; Y93.89 Activity, other specified; Y92.009 Unspecified place in unspecified non-institutional (private) residence as the place of occurrence of the external cause; I10 Essential (primary) hypertension
CPT/HCPCS: 12001; 99281; 99282

== ENCOUNTER 2019-12-01 08:00 | Outpatient (CLI) | payer MEDICAID | END 2019-12-01 23:59 | disposition home or self-care (01) | LOC: LAB 08:00 | PROVIDERS: ATTEND Family Medicine | DX: Z11.59 Encounter for screening for other viral diseases (principal) | CPT/HCPCS: 81599 ==

== ENCOUNTER 2019-12-21 07:00 | Outpatient (CLI) | payer MEDICAID ==
[2019-12-21 20:25] LABS: RAPID STREP SCREEN Negative (Negative)
== END 2019-12-21 23:59 | disposition home or self-care (01) ==
LOC: LAB.R 07:00
PROVIDERS: ATTEND Emergency Medicine
DX: J02.9 Acute pharyngitis, unspecified (principal)
CPT/HCPCS: 87070; 87430

== ENCOUNTER 2020-06-04 16:20 | Emergency (ER) | payer MEDICARE, MEDICAID ==
[2020-06-04 16:40] VITALS: BP 170/85
--- NOTE | 2020-06-04 16:52 | ED Physician Documentation ---
History of Present Illness - Stated complaint Stated Complaint: WANTS COVID TEST - Chief complaint Chief Complaint: General - History obtained from History obtained from: Patient - Additonal information Additional information: She went to physical therapy office on May 30. Her appointment was canceled. She did not have any therapy done. She learned today that somebody in that office has coronavirus. She is very concerned and wants to be tested. She has no symptoms. 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 : None HEENT: Chronic vision loss Psych: None Musculoskeletal: None Derm: None - Past Surgical History Past Surgical History: No General: Colonoscopy Ortho: Carpal Tunnel surgery - Present Medications Home Medications: Ambulatory Orders Medication Instructions Recorded Confirmed Cholecalciferol (Vitamin D3) 1 tab PO DAILY 06/28/17 10/19/17 [Vitamin D3] predniSONE [Deltasone] 60 mg PO DAILY #6 tablet 04/25/18 raNITIdine [Zantac] 150 mg PO DAILY 04/25/18 04/25/18 - Allergies Allergies/Adverse Reactions: Allergies Allergy/AdvReac Type Severity Reaction Status Date / Time aspirin Allergy Unknown Verified 06/04/20 16:40 morphine Allergy Unknown Verified 06/04/20 16:40 tramadol AdvReac Unknown Verified 06/04/20 16:40 - Social History Does the pt smoke?: No Smoking Status: Never smoker Does the pt drink ETOH?: Yes Does the pt have substance abuse?: No - Immunizations Immunizations are current?: Yes PD ED PE NORMAL - Vitals Vital signs reviewed: Yes - General General: Alert and oriented X 3, No acute distress - Derm Derm: No rash - Neuro Neuro: Alert and oriented X 3, Normal speech Results - Vitals Vitals: Vital Signs - 24 hr 06/04/20 16:37 Temperature 36.3 C L Heart Rate 100 Respiratory 20 Rate Blood Pressure 170/85 H O2 Saturation 98 Oxygen O2 Source Room air Departure - Departure Disposition: Home, Self Care Clinical Impression: Exposure to COVID-19 virus Condition: Good Record reviewed to determine appropriate education?: Yes Comments: You have a Covid test pending. You need to self quarantine until the result is done and negative. Do not leave your house. Do not get near anybody. The results should be done in 48 to 72 hours. We will call with a positive result, the fastest way to get a negative result for confirmation though is to go to the hospital website at [email or web address], click on the my IMN tab and sign up for the patient portal. If any friends or family get sick and would like to have a Covid test done, but do not have signs or symptoms that would necessitate being hospitalized, we encourage testing through our coronavirus swabbing station, call [phone] to schedule an appointment.
== END 2020-06-04 17:04 | disposition home or self-care (01) ==
LOC: ED 16:20
DX: Z20.828 Contact with and (suspected) exposure to other viral communicable diseases (principal)
CPT/HCPCS: 99283; U0004

== ENCOUNTER 2021-07-07 15:21 | Emergency (ER) | payer MEDICARE, MEDICAID ==
[2021-07-07 16:01] LABS: BASOPHILS # (AUTO) 0.1 10^3/uL (0.0-0.1); BASOPHILS % (AUTO) 0.7 %; EOSINOPHILS # (AUTO) 0.2 10^3/uL (0.0-0.7); EOSINOPHILS % (AUTO) 2.1 %; HCT - HEMATOCRIT 44.3 % (37.0-47.0); HGB - HEMOGLOBIN 14.4 g/dL (12.0-16.0); LYMPHOCYTES # (AUTO) 1.7 10^3/uL (1.5-3.5); LYMPHOCYTES % (AUTO) 23.4 %; MEAN CORPUSCULAR HEMOGLOBIN 29.5 pg (27.0-31.0); MEAN CORPUSCULAR HGB CONC 32.5 g/dL (32.0-36.0); MEAN CORPUSCULAR VOLUME 90.8 fL (81.0-99.0); MONOCYTES # (AUTO) 0.8 10^3/uL (0.0-1.0); MONOCYTES % (AUTO) 10.3 %; NEUTROPHILS # (AUTO) 4.6 10^3/uL (1.5-6.6); NEUTROPHILS % (AUTO) 63.2 %; PLT - PLATELET COUNT 222 10^3/uL (130-450); RED BLOOD COUNT 4.88 10^6/uL (4.20-5.40); RED CELL DISTRIBUTION WIDTH 13.4 % (12.0-15.0); WHITE BLOOD COUNT 7.3 x10^3/uL (4.8-10.8)
[2021-07-07 16:08] LABS: ALBUMIN 4.7 g/dL (3.2-5.5); ALBUMIN/GLOBULIN RATIO 1.5 (1.0-2.2); BILIRUBIN,TOTAL 1.1 mg/dL (0.2-1.0); CALCIUM 9.8 mg/dL (8.5-10.3); CREATININE 0.7 mg/dL (0.4-1.0); POTASSIUM 3.8 mmol/L (3.5-5.0); TOTAL PROTEIN 7.9 g/dL (6.7-8.2)
[2021-07-07] MEDS ORDERED: IOVERSOL 320 100 ML VIAL IVP ONE ×2 (17:06→17:18)
--- NOTE | 2021-07-07 17:27 | Ultrasound Report ---
PROCEDURE: Pelvic w/Transvag+Doppler Comp INDICATIONS: pelvic pain, L. family hx of ovarian CA TECHNIQUE: Real-time transabdominal scanning was performed of the pelvic organs, with image documentation. COMPARISON: Correlation is made with the accompanying abdomen pelvis CT, 07/07/2021. FINDINGS: Uterus: Uterus is normal in size at 6 x 3.1 x 4.3 cm. The uterus demonstrates a variable orientation and demonstrates a heterogeneous echotexture. Endometrium measures 3 mm in combined thickness. Low echogenicity uterine lesions are seen, which are attributed to fibroids and which measure as foll ows: Mid anterior uterus, submucosal, 1.1 x 0.8 x 1.2 cm Left posterior uterus, intramural, 0.5 x 0.6 x 0.5 cm Ovaries: The right ovary measures 1 x 1.6 x 0.6 cm, with a calculated volume of 0.5 cc and the left ovary measures 0.9 x 2 x 0.8 cm, with a calculated volume of 0.7 cc. No significant ovarian abnormal ities are seen. Specifically, no ovarian masses are seen. There are less than 12 follicles seen on ea ch side. No adnexal masses are seen. Normal-appearing arterial waveforms are confirmed to each ov jordan. Other: No free pelvic fluid. IMPRESSION: No imaging explanation is found for the patient's presenting symptoms. Negative for ovarian masses. No abnormal endometrial thickening is seen. Small uterine fibroids can be seen. Note: Concordant preliminary findings given by the pumper gauger upon the completion of the examination to Dr. Moe at 5:00 PM on 07/07/2021. Reviewed by: Alfie Manrique MD on 07/07/2021 4:25 PM [facility] Approved by: Alfie Manrique MD on 07/07/2021 4:25 PM [facility] Station ID: [id number]
--- NOTE | 2021-07-07 17:30 | CT Report ---
PROCEDURE: Abdomen/Pelvis W INDICATIONS: LLQ abd pain CONTRAST: IV CONTRAST: Optiray 320 ml: 100 PO CONTRAST: *NO PO CONTRAST TECHNIQUE: After the administration of IV contrast, 5 mm thick sections acquired from the diaphragms to the symp hysis. 5 mm thick coronal and sagittal reformats were acquired. For radiation dose reduction, the f ollowing was used: automated exposure control, adjustment of mA and/or kV according to patient size. COMPARISON: Correlation is made with the accompanying pelvic ultrasound, 07/07/2021. FINDINGS: Image quality: Excellent. ABDOMEN: Lung bases: Lung bases are clear. Heart size is normal. Solid organs: Liver and spleen are normal in size and enhancement. Gallbladder wall does not appear thickened. Biliary system is non dilated. Pancreas enhances normally. No adrenal nodules. Kidn eys demonstrate normal size and enhancement, without hydronephrosis. Peritoneum and bowel: In this patient with this given history, scrutiny is given to the sigmoid colo n and the left lower quadrant. No significant diverticulosis is seen. Negative for diverticulitis or distal colitis. No significant inflammatory changes are seen. Bowel loops demonstrate normal wall thickness and caliber. No free fluid or air. A normal appendix is incidentally noted. Nodes and vessels: No retroperitoneal or mesenteric adenopathy by size criteria. Aorta and inferior vena cava are normal in size. Miscellaneous: A trace fat-containing periumbilical hernia is seen. PELVIS: Genitourinary: Bladder wall thickness is normal. The uterus demonstrates an unremarkable appearance for age. No adnexal masses are seen. Miscellaneous: No inguinal hernias or adenopathy. Bones: No suspicious bony lesions. No vertebral body compression fractures. Focal T11-T12 degenera tive change is seen. Milder degenerative changes are seen elsewhere. IMPRESSION: Negative for diverticulitis or distal colitis. No imaging explanation is found for the patient's presenting symptoms. No adnexal masses or pelvic masses are seen. Incidental note is made of: Focal T11-T12 degenerative change Trace fat containing periumbilical hernia Reviewed by: Alfie Manrique MD on 07/07/2021 4:29 PM [facility] Approved by: Alfie Manrique MD on 07/07/2021 4:29 PM [facility] Station ID: [id number]
--- NOTE | 2021-07-07 17:36 | ED Physician Documentation ---
PD HPI ABD PAIN - Stated complaint Stated Complaint: ABD CRAMPING - Chief complaint Chief Complaint: Abd Pain - History obtained from History obtained from: Patient - History of Present Illness Timing - onset: How many weeks ago (4) Timing - duration: Weeks (4) Timing - details: Gradual onset, Intermittant Pain level max: 4 Pain level now: 3 Location: LLQ - Additional information Additional information: Patient is a 65-year-old female who presents to the emergency department left lower quadrant abdominal pain. This been intermittent over the past 4 weeks. She states that she was seen by her doctor in [place] and had a CT scan but does not know the results. She believes they were normal. She states that her mother had ovarian cancer at around the same age and is awaiting a pelvic ultrasound. Review of Systems Constitutional: denies: Fever, Chills Ears: denies: Ear pain Nose: denies: Rhinorrhea / runny nose, Congestion Throat: denies: Sore throat Cardiac: denies: Chest pain / pressure, Palpitations Respiratory: denies: Cough GI: reports: Abdominal Pain (Cramping, intermittent, left lower quadrant.), Nausea, Constipation. 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 : None HEENT: Chronic vision loss Psych: None Musculoskeletal: None Derm: None - Past Surgical History Past Surgical History: No General: Colonoscopy Ortho: Carpal Tunnel surgery - Present Medications Home Medications: Ambulatory Orders Medication Instructions Recorded Confirmed Cholecalciferol (Vitamin D3) 1 tab PO DAILY 06/28/17 10/19/17 [Vitamin D3] predniSONE [Deltasone] 60 mg PO DAILY #6 tablet 04/25/18 raNITIdine [Zantac] 150 mg PO DAILY 04/25/18 04/25/18 Dicyclomine [Bentyl] 10 mg PO QID PRN #30 cap 07/07/21 - Allergies Allergies/Adverse Reactions: Allergies Allergy/AdvReac Type Severity Reaction Status Date / Time aspirin Allergy Unknown Verified 07/07/21 15:36 morphine Allergy Unknown Verified 07/07/21 15:36 tramadol AdvReac Unknown Verified 07/07/21 15:36 - Social History Does the pt smoke?: No Smoking Status: Never smoker Does the pt drink ETOH?: Yes Does the pt have substance abuse?: No - Immunizations Immunizations are current?: Yes PD ED PE NORMAL - Vitals Vital signs reviewed: Yes - General General: Alert and oriented X 3, No acute distress - HEENT HEENT: Moist mucous membranes - Neck Neck: Supple, no meningeal sign - Cardiac Cardiac: RRR - Respiratory Respiratory: No respiratory distress, Clear bilaterally - Abdomen Abdomen: Normal bowel sounds, Soft, Non distended, Other (Tender palpation left lower quadrant/ left pelvic. No peritoneal signs.) - Derm Derm: Warm and dry - Extremities Extremities: No edema - Neuro Neuro: Alert and oriented X 3 - Psych Psych: Normal mood, Normal affect Results - Vitals Vitals: Vital Signs - 24 hr 07/07/21 07/07/21 07/07/21 15:29 17:21 17:59 Temperature 37.3 C 36.7 C Heart Rate 116 H 100 80 Respiratory 20 20 18 Rate Blood Pressure 169/104 H 143/87 H 106/76 O2 Saturation 98 98 100 Oxygen O2 Source Room air - Labs Labs: Laboratory Tests 07/07/21 07/07/21 15:47 15:47 WBC 7.3 RBC 4.88 Hgb 14.4 Hct 44.3 MCV 90.8 MCH 29.5 MCHC 32.5 RDW 13.4 Plt Count 222 MPV 11.0 H Neut # (Auto) 4.6 Lymph # (Auto) 1.7 [place] # (Auto) 0.8 Eos # (Auto) 0.2 Baso # (Auto) 0.1 Absolute Nucleated RBC 0.00 Nucleated RBC % 0.0 Sodium 142 Potassium 3.8 Chloride 105 Carbon Dioxide 27 Anion Gap 10.0 BUN 16 Creatinine 0.7 Estimated GFR (MDRD) 84 L Glucose 109 H Calcium 9.8 Total Bilirubin 1.1 H AST 24 ALT 20 Alkaline Phosphatase 73 Total Protein 7.9 Albumin 4.7 Globulin 3.2 Albumin/Globulin Ratio 1.5 Lipase 44 - Rads (name of study) CT abdomen and pelvis Radiology: Final report received, EMP read contemporaneously, See rad report Pelvic ultrasound Radiology: Final report received, EMP read contemporaneously, See rad report PD MEDICAL DECISION MAKING - ED course Complexity details: reviewed results, re-evaluated patient, considered differential, d/w patient ED course: 65-year-old female with left lower quadrant abdominal pain. Concerned about potential ovarian cancer given her family history. Mother was diagnosed around the same age. No acute findings on CT scan or pelvic ultrasound. No evidence of cancer at this time. Patient states she had a colonoscopy about a year ago that was reportedly normal. She does have uterine fibroids on ultrasound. No endometrial thickening. No vaginal bleeding. Patient is well-appearing, nontoxic. Afebrile. We will trial on Bentyl and have her follow-up with her doctor for further care. Patient counseled regarding signs and symptoms for which I believe and urgent re-evaluation would be necessary. Patient with good understanding of and agreement to plan and is comfortable going home at this time This document was made in part using voice recognition software. While efforts are made to proofread this document, sound alike and grammatical errors may occur. Departure - Departure Disposition: 01 Home, Self Care Clinical Impression: Abdominal pain Qualifiers: Abdominal location: unspecified location Qualified Code(s): R10.9 - Unspecified abdominal pain Condition: Good Instructions: ED Abdominal Pain Female Non-Specific Abdominal Pain Follow-Up: AVI SOARES MD [Primary Care Provider] - Within 1 week Prescriptions: Dicyclomine [Bentyl] 10 mg PO QID PRN #30 cap PRN Reason: Abdominal Pain Comments: The cause of your symptoms is unclear today. Please follow-up with your doctor for further care. Your CT and ultrasound do not show any acute abnormalities. We will trial you on Bentyl for home. Your prescription was sent to [facility] in [place]. Discharge Date/Time: 07/07/21 18:01
[2021-07-07] MEDS ORDERED: DICYCLOMINE 10 MG CAPSULE PO STA (17:40)
[2021-07-07 18:01] VITALS: BP 106/76
== END 2021-07-07 18:01 | disposition home or self-care (01) ==
LOC: ED 15:21
DX: R10.32 Left lower quadrant pain (principal); D25.1 Intramural leiomyoma of uterus; D25.0 Submucous leiomyoma of uterus; Z80.41 Family history of malignant neoplasm of ovary; I10 Essential (primary) hypertension
CPT/HCPCS: 36415; 74177; 76830; 76856; 80053; 83690; 85025; 93975; 99283; 99284; A9270; Q9967

== ENCOUNTER 2022-03-01 11:47 | Emergency (ER) | payer MEDICARE ==
--- NOTE | 2022-03-01 13:07 | CT Report ---
PROCEDURE: CT pelvis without contrast INDICATIONS: left hip pain after fall; ? fx TECHNIQUE: Noncontrast 3 mm axial sections acquired through the bony pelvis, with coronal and sagittal reformatt ing. For radiation dose reduction, the following was used: automated exposure control, adjustment of mA and/or kV according to patient size. COMPARISON: None. FINDINGS: Image quality: Excellent. Bones: Degenerative changes noted in the lower lumbar spine. The pelvis and both proximal femurs are intact without evidence of fracture. Soft tissues are also unremarkable. No hematoma. Normal appeari ng appendix present. Soft tissues: As above IMPRESSION: No evidence of pelvis or proximal femoral fracture. Reviewed by: Nathan Burns MD on 03/01/2022 12:06 PM [facility] Approved by: Nathan Burns MD on 03/01/2022 12:06 PM [facility] Station ID: [id number]
[2022-03-01] MEDS ORDERED: oxyCODONE 5 MG TABLET PO STA (14:52)
[2022-03-01] MEDS ORDERED: LIDOCAINE PATCH 5% TOP STA (15:11)
[2022-03-01 15:23] VITALS: BP 139/89
--- NOTE | 2022-03-01 15:29 | ED Physician Documentation ---
PD HPI LOWER EXT INJURY - Stated complaint Stated Complaint: GLF/L HIP PAIN - Chief complaint Chief Complaint: Trauma Ext - History obtained from History obtained from: Patient - Additional information Additional information: Pt is a 66 yo F with no significant past medical history presenting for L hip pain after falling around 1PM. Pt was bringing in groceries and tripped as she was holding bags in front of her and didn't see where she was going. Pt denies head injury/LOC. She landed on her L hip. She has been able to ambulate but it is painful. Denies previous injury at this site. She has not taken anything for pain. Pt not on blood thinners. Review of Systems Constitutional: denies: Fever Cardiac: denies: Chest pain / pressure Respiratory: denies: Dyspnea GI: denies: Abdominal Pain, Vomiting Skin: denies: Laceration (s) Musculoskeletal: reports: Joint pain. 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 HEENT: Chronic vision loss Psych: None Musculoskeletal: None Derm: None - Past Surgical History Past Surgical History: No General: Colonoscopy Ortho: Carpal Tunnel surgery - Present Medications Home Medications: Ambulatory Orders Medication Instructions Recorded Confirmed Cholecalciferol (Vitamin D3) 1 tab PO DAILY 06/28/17 10/19/17 [Vitamin D3] predniSONE [Deltasone] 60 mg PO DAILY #6 tablet 04/25/18 raNITIdine [Zantac] 150 mg PO DAILY 04/25/18 04/25/18 Dicyclomine [Bentyl] 10 mg PO QID PRN #30 cap 07/07/21 Lidocaine Patch 5% [Lidoderm Patch] 1 patch TOP DAILY PRN #10 patch 03/01/22 Oxycodone HCl/Acetaminophen 1 each PO Q6H PRN #10 tablet 03/01/22 [Percocet 5-325 mg Tablet] - Allergies Allergies/Adverse Reactions: Allergies Allergy/AdvReac Type Severity Reaction Status Date / Time aspirin Allergy Unknown Verified 07/07/21 15:36 morphine Allergy Unknown Verified 07/07/21 15:36 tramadol AdvReac Unknown Verified 07/07/21 15:36 - Social History Does the pt smoke?: No Smoking Status: Never smoker Does the pt drink ETOH?: Yes Does the pt have substance abuse?: No - Immunizations Immunizations are current?: Yes PD ED PE NORMAL - General General: Alert and oriented X 3, No acute distress, Well developed/nourished - HEENT HEENT: Atraumatic, PERRL, EOMI, Pharynx benign - Neck Neck: Supple, no meningeal sign, No bony TTP, C-Spine cleared by NEXUS criteria - Cardiac Cardiac: RRR, Strong equal pulses - Respiratory Respiratory: No respiratory distress, Clear bilaterally - Abdomen Abdomen: Non tender, Non distended - Back Back: No spinal TTP - Derm Derm: Warm and dry - Extremities Extremities: No deformity, No edema, Other (Tenderness into L buttock, allows for passive ROM of L hip; no bruising/swelling; distal pulses intact) - Neuro Neuro: Alert and oriented X 3, No motor deficit, No sensory deficit, Normal speech Eye Opening: Spontaneous Motor: Obeys Commands Verbal: Oriented GCS Score: 15 Results - Vitals Vitals: Vital Signs - 24 hr 03/01/22 03/01/22 12:04 15:22 Temperature 37.0 C Heart Rate 84 81 Respiratory 18 18 Rate Blood Pressure 146/91 H 139/89 H O2 Saturation 100 100 Oxygen O2 Source Room air PD MEDICAL DECISION MAKING - ED course Complexity details: reviewed results, re-evaluated patient, d/w patient, d/w family ED course: Pt with GLF and L hip pain. No head injury. No outward signs of injury. CT pelvis ordered at triage and negative for hip fracture. Pt able to ambulate with walker. Counseled on continuing with supportive care and concerning symptoms to return for. Departure - Departure Disposition: 01 Home, Self Care Clinical Impression: Injury of hip and thigh Qualifiers: Encounter type: initial encounter Laterality: left Qualified Code(s): S79.912A - Unspecified injury of left hip, initial encounter Condition: Stable Instructions: ED Contusion Hip Prescriptions: Lidocaine Patch 5% [Lidoderm Patch] 1 patch TOP DAILY PRN #10 patch PRN Reason: pain Oxycodone HCl/Acetaminophen [Percocet 5-325 mg Tablet] 1 each PO Q6H PRN #10 tablet PRN Reason: pain Comments: You were evaluated for left-sided hip pain after falling. A CT scan does not show a broken bone in your pelvis. You likely have a contusion to the area. This may take several days to feel better. I would recommend the use of a walker for increased ability. I have also sent a prescription for pain medication and lidocaine patches to [facility] in [place]. I will also have you off work for the next several days. If you have any worsening symptoms please return to the emergency department. Otherwise I do recommend close follow-up with your primary care doctor. Forms: Activity restrictions Discharge Date/Time: 03/01/22 15:38
== END 2022-03-01 15:38 | disposition home or self-care (01) ==
LOC: ED 11:47
DX: S79.912A Unspecified injury of left hip, initial encounter (principal); W01.0XXA Fall on same level from slipping, tripping and stumbling without subsequent striking against object, initial encounter; I10 Essential (primary) hypertension
CPT/HCPCS: 72192; 99282; 99284; A9270